=== PATIENT | male | born 1980 | race Caucasian/White ===

== ENCOUNTER → 2016-09-27 | Outpatient (CLI) | payer OTHER ==
[~2016-09-27] MED LIST: DEXL60CA PO; ESCI5TAB24 PO; GADOBUTROL 7.5 MMOL/7.5 ML VIAL INT ART ONE; HYDR-2672 PO; IOHEXOL 300 MG/ML 50 ML VIAL. INT ART ONE; LIDOCAINE 1% Multi-Dose 20 ML VIAL. ID ONE
--- NOTE | 2016-09-27 14:49 | KCIC ---
Left shoulder Arthrogram: Indications: Reason For Study Reason: LEFT SHOULDER PAIN AND LIMITED RANGE OF MOTION X 3-4 YEARS / Spl. Instructions: FT 1:03 , IMAGES 3, 5ML LIDOCAINE, 5ML OMNI, 0.1ML GADAVIST, 10ML SALINE / History: NO KNOWN INJURY Fluoroscopy time: 1:03 seconds 3 spot images were obtained Procedure: Risks, benefits and complications including bleeding, infection, blood vessel damage or joint infection were discussed with the patient. Questions were answered and consent form signed. The patient was placed supine on the fluoroscopy table with the shoulder slightly externally rotated. Bony landmarks were used to plan for fluoroscopic injection. The patient was carefully prepped and draped in a sterile fashion. Using fluoroscopic guidance, local anesthetic and a 22 gauge needle the joint space was entered. Intra-articular location was confirmed as approximately 12cc of a mixture of iodinated contrast gadolinium agent and sterile saline was injected to distend the shoulder joint. The procedure was well tolerated and the patient was sent to MRI. The patient was sent home in good condition with instructions to contact referring physician if there develops signs or symptoms of complications, such as pain, bleeding, fever or chills. Impression: Status post fluoroscopic guided arthrogram in preparation for MRI with contrast. Electronically signed by: Geraldo Cuellar (Sep 27, 2016 14:47:40)
--- NOTE | 2016-09-28 10:12 | KCIC ---
PROCEDURE MR arthrogram of the left shoulder HISTORY Left shoulder pain and limited range of motion for 3 or 4 years. TECHNIQUE Intra-articular contrast injected prior to the scan, and reported separately. The standard 4 plane sequences were obtained including ABER positioning. COMPARISON None FINDINGS The acromioclavicular joint is intact. No evidence of a rotator cuff tear. No significant subdeltoid bursal fluid or contrast accumulation. No evidence of a labral tear. No paralabral cyst. No acute articular cartilage defect. The biceps tendon is intact. No bone lesion or acute fracture. No acute soft tissue injury. IMPRESSION No evidence of labral tear or other internal derangement. Electronically signed by: Blayne Moreno MD (Sep 28, 2016 10:09:48)
== END | disposition home or self-care (01) ==
LOC: KCIC 12:21
PROVIDERS: ATTEND Family Medicine
DX: M25.512 Pain in left shoulder (principal)
CPT/HCPCS: 73040; 73222; Q9967; A9585